=== PATIENT | male | born 1955 | race Caucasian/White ===

== ENCOUNTER 2017-10-25 14:01 | Emergency (ER) | payer OTHER ==
[~2017-10-25] VITALS: Wt 83.9 kg
[2017-10-25] MEDS ORDERED: NORCO 5-325 TA1 EACH PO (16:17)
[2017-10-25] MEDS ORDERED: Motrin,Rufen800 MG PO (16:17)
[2017-10-25] MEDS ORDERED: CYCLOBENZAPRINE5 M3 PO (16:17)
== END 2017-10-25 16:38 | disposition home or self-care (01) ==
LOC: ED 14:01
DX: M54.10 Radiculopathy, site unspecified (principal); M25.552 Pain in left hip